=== PATIENT | male | born 1985 | race Caucasian/White ===

== ENCOUNTER 2016-07-24 16:17 | Emergency (ER) | payer MEDICAID ==
[~2016-07-24] VITALS: Ht 160 cm; Wt 70.0 kg
[2016-07-24 16:28] VITALS: Ht 160 cm; Wt 70.0 kg
[2016-07-24] MEDS ORDERED: LIDOCAINE 2%/EPI MPF (SDV) 20 ML VIAL INJ ONE (16:30)
[2016-07-24] MEDS ORDERED: HYDROCODONE/APAP (5/325) TAB PO ONE (16:30)
[2016-07-24] MEDS ORDERED: ACET500T98 PO (17:10)
[2016-07-24] MEDS ORDERED: HALOPERIDOL 5 MG INJ ONE (17:18)
[2016-07-24] MEDS ORDERED: LORAZEPAM 2 MG INJ ONE (17:19)
[2016-07-24] MEDS ORDERED: LORAZEPAM 2 MG INJ IM ONE (17:30)
[2016-07-24] MEDS ORDERED: HALOPERIDOL 5 MG INJ IM ONE (17:30)
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
[2016-07-24 20:25] VITALS: BP 130/69; PULSE 103; RESP 20; TEMP 98.2
[2016-07-28] MEDS ORDERED: CEPH-443 PO (11:04)
[2016-07-28] MEDS ORDERED: SULF1TAB31 PO (11:04)
== END 2016-07-24 21:00 | disposition home or self-care (01) ==
LOC: E/R 16:17
DX: S61.511A Laceration without foreign body of right wrist, initial encounter (principal); R58 Hemorrhage, not elsewhere classified; F10.129 Alcohol abuse with intoxication, unspecified; F17.210 Nicotine dependence, cigarettes, uncomplicated; W01.110A Fall on same level from slipping, tripping and stumbling with subsequent striking against sharp glass, initial encounter; Y92.9 Unspecified place or not applicable
CPT/HCPCS: 12002; 96374; 96375; J1630; J2060; Z7502; Z7610